=== PATIENT | male | born 1985 | race African-American/Black ===

== ENCOUNTER 2021-12-31 17:34 | Emergency (ER) | payer SELFPAY ==
[2021-12-31] MEDS ORDERED: ASPIRIN 81 MG CHEWABLE TABLETS PO ONE (17:41)
[2021-12-31] MEDS ORDERED: EPINEPHrine 1:10,000 (P-F SYR) 1 MG/10 ML DISP.SYRIN ONE (17:51)
== END 2021-12-31 22:46 | disposition expired ==
LOC: JER 17:34
DX: I46.9 Cardiac arrest, cause unspecified (principal)
CPT/HCPCS: 82962; 99291